=== PATIENT | male | born 1985 | race Caucasian/White ===

== ENCOUNTER 2017-02-25 04:42 | Emergency (ER) | payer SELFPAY ==
[~2017-02-25] VITALS: Ht 170.2 cm; Wt 85.0 kg
[~2017-02-25 04:42] MED LIST: BACTRIM DS1 TAB OR; LORTAB 7.5 OR; NO HOME MEDS; NO MEDICATIONS
[2017-02-25 05:29] VITALS: BP 141/81
[2017-02-25] MEDS ORDERED: GENTAMICIN0.3 % OS (05:29)
== END 2017-02-25 05:40 | disposition home or self-care (01) | DRG 115 ==
LOC: ED 04:42
PROC: 08C9XZZ Extirpation of Matter from Left Cornea, External Approach (ICD-10-PCS; principal; 2017-02-25)
DX: T15.02XA Foreign body in cornea, left eye, initial encounter (principal); F17.210 Nicotine dependence, cigarettes, uncomplicated; X58.XXXA Exposure to other specified factors, initial encounter

== ENCOUNTER 2019-12-24 | Emergency (ER) | payer SELFPAY ==
[~2019-12-24] MED LIST changes: +GENTAMICIN0.3 % OS
[2019-12-24] MEDS ORDERED: LORTAB 1010 MG PO (07:55)
[2019-12-24] MEDS ORDERED: BACTRIM DS1 TAB PO (07:55)
[2019-12-24] MEDS ORDERED: CEPHALEXIN500 M1 PO (07:55)
== END 2019-12-24 08:02 | disposition home or self-care (01) | DRG 603 ==
PROC: 0H98XZZ Drainage of Buttock Skin, External Approach (ICD-10-PCS; principal; 2019-12-24)
DX: L02.31 Cutaneous abscess of buttock (principal); F17.210 Nicotine dependence, cigarettes, uncomplicated